=== PATIENT | male | born 1950 | race Caucasian/White ===

== ENCOUNTER 2019-04-28 12:22 | Emergency (ER) | payer MEDICARE, OTHER | END 2019-04-28 13:53 | disposition home or self-care (01) | LOC: MADERS 12:22 | DX: J02.9 Acute pharyngitis, unspecified (principal); I10 Essential (primary) hypertension; N40.0 Benign prostatic hyperplasia without lower urinary tract symptoms; Z79.899 Other long term (current) drug therapy | CPT/HCPCS: 99283 ==

== ENCOUNTER 2020-10-02 06:32 | Emergency (ER) | payer MEDICARE, OTHER ==
[2020-10-02] MEDS ORDERED: Acetaminophen 500 MG TAB ONE (06:58)
[2020-10-02] MEDS ORDERED: Boostrix 0.5 ML (Tdap) VIAL ONE (06:58)
== END 2020-10-02 08:21 | disposition home or self-care (01) ==
LOC: MADERS 06:32
DX: S01.01XA Laceration without foreign body of scalp, initial encounter (principal); S70.02XA Contusion of left hip, initial encounter; S16.1XXA Strain of muscle, fascia and tendon at neck level, initial encounter; I10 Essential (primary) hypertension; W17.89XA Other fall from one level to another, initial encounter
CPT/HCPCS: 12002; 70450; 71045; 72125; 90471; 90715

== ENCOUNTER 2024-01-28 13:18 | Emergency (ER) | payer MEDICARE, OTHER | END 2024-01-28 14:57 | disposition home or self-care (01) | LOC: MADERS 13:18 | DX: S20.222A Contusion of left back wall of thorax, initial encounter (principal); S40.811A Abrasion of right upper arm, initial encounter; S40.812A Abrasion of left upper arm, initial encounter; I10 Essential (primary) hypertension; Z79.899 Other long term (current) drug therapy; W19.XXXA Unspecified fall, initial encounter | CPT/HCPCS: 71250 ==